=== PATIENT | male | born 1950 | race Caucasian/White ===

== ENCOUNTER 2024-10-22 21:27 | Emergency (ER) | payer MEDICARE, OTHER ==
[~2024-10-22 21:27] MED LIST: Iopamidol 370 76% 100 ML VIAL ONE
[2024-10-22 22:38] LABS: Hematocrit 42.1 % (38.8-50.0); Hemoglobin 13.5 g/dL (13.5-17.5); Mean Corpuscular Hemoglobin 30.3 pg (27.0-33.0); Mean Corpuscular Volume 94.6 fL (81.2-95.1); Platelet Count 155 10x3/uL (150-450); Red Blood Cell (RBC) Count 4.45 10x6/uL (4.32-5.72); White Blood Cell (WBC) Count 27.26 10x3/uL (3.5-10.5)
[2024-10-22 22:43] LABS: Troponin I 0.048 ng/mL (< 0.028)
[2024-10-22 22:44] LABS: INR-International Normal Ratio 1.3; PTT 30.9 sec (22.0-33.0); Prothrombin Time 13.8 sec (9.5-12.1)
[2024-10-22 22:48] LABS: AST (SGOT) 36 U/L (11-34); Albumin 3.1 g/dL (3.1-4.5); Alkaline Phosphatase 118 U/L (40-110); Anion Gap 25 mmol/L (10-20); BUN (Urea Nitrogen) 31 mg/dL (8.4-25.7); Bilirubin, Total 0.9 mg/dL (0.3-1.2); CK (CPK) 809 U/L (30-200); Calc. Creatinine Clearance 0 mL/min (70-130); Calcium 8.7 mg/dL (7.8-10.44); Carbon Dioxide 16 mmol/L (23-31); Chloride 97 mmol/L (98-107); Globulin 3.6 g/dL (2.4-3.5); Glucose 387 mg/dL (83-110); Lipase 9 U/L (8-78); Magnesium 1.5 mg/dL (1.6-2.6); Potassium 4.9 mmol/L (3.5-5.1); Sodium 133 mmol/L (136-145)
[2024-10-22 23:04] LABS: ALT (SGPT) 16 U/L (Less than 45)
[2024-10-22 23:25] LABS: Anisocytosis SLIGHT = 6-15 cells (100X) (0-5/hpf); MDiff Complete? YES; Macrocytosis SLIGHT = 6-15 cells (100X) (0-5/hpf); Platelet Adequacy Comment Appears Adequate
[2024-10-22] MEDS ORDERED: Magnesium 2 GM/50 ML BAG (IN WATER) ONE (23:29)
[2024-10-22] MEDS ORDERED: Cefepime 2 GM VIAL ONE (23:55)
[2024-10-23 01:57] LABS: Glucose, Urine (Dipstick) 250 mg/dL (Negative); Leukocyte 25 (Negative); Protein, Urine (Dipstick) 100 mg/dl (Neg-Trace); Specific Gravity, Urine 1.020 (1.005-1.030)
[2024-10-23 02:05] LABS: CAUTI Indications for Culture Pelvic or flank pain; RBC/HPF 0-3 HPF (0-3)
[2024-10-23 02:06] LABS: Bacteria/HPF 2+ HPF (None Seen); Urine Culture Reflex No No
== END 2024-10-23 03:27 | disposition short-term general hospital (02) ==
LOC: CSHERS 21:27
DX: A41.9 Sepsis, unspecified organism (principal); R65.20 Severe sepsis without septic shock; N13.9 Obstructive and reflux uropathy, unspecified; I10 Essential (primary) hypertension; E11.9 Type 2 diabetes mellitus without complications
CPT/HCPCS: 36415; 70450; 71260; 72125; 72131; 74177; 75635; 80053; 81001; 82550; 83605; 83690; 83735; 83880; 84484; 85025; 85610; 85730; 86850; 86900; 86901; 87040; J0692; J3373; J3475